=== PATIENT | male | born 2000 ===

== ENCOUNTER 2024-11-10 11:04 | Emergency (ER) | payer OTHER ==
[~2024-11-10] VITALS: Ht 177.8 cm; Wt 86.2 kg
[2024-11-10] MEDS ORDERED: CEFTRIAXONE SODIUM 1,000 MG VIAL IM ONE (16:15)
[2024-11-10] MEDS ORDERED: CEFTRIAXONE SODIUM 1,000 MG VIAL ONE (16:22)
[2024-11-10] MEDS ORDERED: LIDOCAINE HCL 1% 10ML VIAL ONE (16:23)
[2024-11-10 16:35] VITALS: BP 120/72; O2SAT 99
== END 2024-11-10 16:37 | disposition home or self-care (01) ==
LOC: ER 11:04
DX: N50.819 Testicular pain, unspecified (principal); N50.3 Cyst of epididymis